=== PATIENT | male | born 1955 | race Hispanic/Latino ===

== ENCOUNTER 2018-05-27 12:51 | Outpatient (CLI) | payer OTHER ==
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
--- NOTE | 2018-05-28 08:54 | Magnetic Resonance Report ---
MRI LUMBAR SPINE WITHOUT CONTRAST HISTORY: Low back derangement and radiculopathy. TECHNIQUE: axial T1, T2. sagittal T1,T2, STIR. COMPARISON: none. FINDINGS: The conus terminates near the inferior endplate of L2. This is at the lower limits of normal. The filum terminale demonstrates increased T1 signal from the levels above L4-S2 consistent with a lipoma of the filum terminale. No spinal dysraphism. These findings are borderline for a tethered cord. Normal height and alignment of the lumbar vertebra. Normal bone marrow signal. No evidence for fracture, malalignment or bone lesion. Diffuse disc desiccation is present. There is moderate disc space narrowing and endplate spurring at L4-5. Moderate multilevel facet arthropathy is present. L4-5 appears to be the most affected level. The paraspinal soft tissues are unremarkable. L1-2: No significant abnormality. L2-3: No significant abnormality. L3-4: No significant abnormality. L4-5: Moderate degenerative disc disease with a circumferential bulging disc is identified. Moderate facet arthropathy and hypertrophy of the ligamentum flavum. This results in mild central canal narrowing measuring 8.8 mm in AP dimension. Right neural foraminal narrowing is estimated at 25%. Left neural foraminal narrowing is estimated at 50-75%. Correlate for left L4 radiculopathy. L5-S1: A focal left paracentral disc protrusion is identified which effaces the anterior thecal sac but no obvious mass effect on nerve roots. No central canal or neural foraminal narrowing. IMPRESSION: Mild to moderate multilevel lumbar spondylosis is identified. L4-5 is the most affected level in which there is mild central canal narrowing and moderate left neural foraminal narrowing. Focal left paracentral disc protrusion at L5-S1 without obvious mass effect. Borderline findings for tethered cord. See above. The clinical significance of this is unclear. No evidence for acute injury.
== END 2018-05-27 12:52 | disposition home or self-care (01) ==
LOC: MRI 12:51
PROVIDERS: ATTEND Internal Medicine
DX: M47.896 Other spondylosis, lumbar region (principal); M51.27 Other intervertebral disc displacement, lumbosacral region; M47.892 Other spondylosis, cervical region
CPT/HCPCS: 72141; 72148